=== PATIENT | female | born 2000 | race African-American/Black ===

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

== ENCOUNTER 2019-02-05 17:53 | Emergency (ER) | payer SELFPAY ==
[~2019-02-05] VITALS: Ht 175.3 cm; Wt 61.0 kg
[2019-02-05] MEDS ORDERED: IBUPROFEN 600MG TABLET PO ONE (18:45)
[2019-02-05 19:39] VITALS: BP 108/61
[2019-02-05 19:46] LABS: CLARITY URINE CLOUDY (CLEAR); COLOR URINE YELLOW (YELLOW); KETONES URINE 2+ (NEGATIVE); LEUKOCYTE ESTERASE URINE 2+ (NEGATIVE); NITRITE URINE NEGATIVE (NEGATIVE); OCCULT BLOOD URINE 3+ (NEGATIVE); PROTEIN URINE 1+ (NEGATIVE); SPECIFIC GRAVITY URINE 1.026 (1.005-1.030)
[2019-02-05 19:59] LABS: *AMPHETAMINES SCREEN URINE NEGATIVE (NEGATIVE); *BARBITURATES SCREEN URINE NEGATIVE (NEGATIVE); *BENZODIAZEPINES SCREEN URINE NEGATIVE (NEGATIVE); *COCAINE SCREEN URINE NEGATIVE (NEGATIVE); METHADONE URINE SCREEN NEGATIVE (NEGATIVE); OPIATES URINE SCREEN NEGATIVE (NEGATIVE)
[2019-02-05 20:00] LABS: PHENCYCLIDINE URINE SCREEN NEGATIVE (NEGATIVE)
[2019-02-05 20:24] LABS: BASOPHILS % 0.7 % (0.0-2.0); EOSINOPHILS % 0.1 % (0.0-5.0); HEMATOCRIT. 38.8 % (36.0-48.0); HEMOGLOBIN. 13.2 g/dL (12.0-16.0); LYMPHOCYTES % 10.5 % (20.0-50.0); MEAN CORPUSCULAR HEMOGLOBIN 33.4 pg (28.0-32.0); MEAN CORPUSCULAR VOLUME 98.1 fL (81.0-99.0); MEAN PLATELET VOLUME 7.8 fl (7.4-10.4); MONOCYTES % 6.9 % (2.0-8.0); NEUTROPHILS % 81.8 % (40.0-76.0); PLATELET 227 x1000/uL (130-400); RED BLOOD CELL COUNT 3.95 mill/uL (4.2-5.4); RED CELL DISTRIBUTION WIDTH 13.3 % (11.6-14.6)
[2019-02-05 20:26] LABS: CHLORIDE 109 mEq/L (98-107)
[2019-02-05 20:29] LABS: CANNABINOID URINE SCREEN PRESUMTIVE POSITIVE (NEGATIVE)
[2019-02-05 20:35] LABS: ETHANOL BLOOD < 10 mg/dL
[2019-02-05] MEDS ORDERED: NITROFURANTOIN 100MG M/M CAPSULE PO ONE (20:45)
== END 2019-02-05 21:48 | disposition home or self-care (01) ==
LOC: ER 17:53
DX: T43.641A Poisoning by ecstasy, accidental (unintentional), initial encounter (principal); F16.188 Hallucinogen abuse with other hallucinogen-induced disorder; G50.1 Atypical facial pain; M54.2 Cervicalgia; R07.81 Pleurodynia; R10.12 Left upper quadrant pain; F12.90 Cannabis use, unspecified, uncomplicated; Y04.2XXA Assault by strike against or bumped into by another person, initial encounter; Y93.89 Activity, other specified; Y92.018 Other place in single-family (private) house as the place of occurrence of the external cause
CPT/HCPCS: 36415; 72100; 74022; 80305; 80307; 80320; 80329; 81003; 81025; 99284; G0480

== ENCOUNTER 2025-01-13 11:23 | Emergency (ER) | payer MEDICAID ==
[~2025-01-13] VITALS: Ht 170.2 cm; Wt 78.0 kg
[2025-01-13 11:27] VITALS: O2SAT 97
[2025-01-13 12:10] LABS: BASOPHILS % 1.3 % (0.0-2.0); EOSINOPHILS % 2.2 % (0.0-5.0); HEMATOCRIT. 36.3 % (36.0-48.0); HEMOGLOBIN. 12.0 g/dL (12.0-16.0); LYMPHOCYTES % 29.6 % (20.0-50.0); MEAN PLATELET VOLUME 8.9 fl (7.4-10.4); MONOCYTES % 6.3 % (2.0-8.0); NEUTROPHILS % 60.6 % (40.0-76.0); PLATELET 243 x1000/uL (130-400); RED BLOOD CELL COUNT 4.05 mill/uL (4.2-5.4); RED CELL DISTRIBUTION WIDTH 15.2 % (11.6-14.6)
[2025-01-13 12:26] LABS: CREATININE 0.8 mg/dL (0.6-1.0)
[2025-01-13 12:27] LABS: ETHANOL BLOOD < 10 mg/dL (<10); UREA NITROGEN BLOOD 10 mg/dL (9-23)
[2025-01-13 12:28] LABS: ASPARTATE AMINOTRANSFERASE 17 IU/L (<34)
[2025-01-13 12:29] LABS: BILIRUBIN DIRECT 0.1 mg/dL (<=3.0); BILIRUBIN TOTAL 0.4 mg/dL (0.1-1.0); PHOSPHORUS 2.8 mg/dL (2.5-4.9); PROTEIN TOTAL 7.3 g/dL (6.0-8.3)
[2025-01-13 12:30] LABS: HCG SCREEN NEGATIVE
[2025-01-13 12:33] LABS: T4 FREE 1.05 ng/dL (0.89-1.76)
[2025-01-13 12:36] LABS: CLARITY URINE CLOUDY (CLEAR); COLOR URINE DARK YELLOW (YELLOW); GLUCOSE URINE NEGATIVE (NEGATIVE); KETONES URINE TRACE (NEGATIVE); LEUKOCYTE ESTERASE URINE 1+ (NEGATIVE); NITRITE URINE NEGATIVE (NEGATIVE); OCCULT BLOOD URINE NEGATIVE (NEGATIVE); PH URINE 5.5 (4.5-8.0); PROTEIN URINE NEGATIVE (NEGATIVE); SPECIFIC GRAVITY URINE 1.027 (1.005-1.030); UROBILINOGEN URINE 1.0 E.U./dL (0.2-1.0)
[2025-01-13 12:42] LABS: MONOTEST NEGATIVE (NEGATIVE)
[2025-01-13 12:50] LABS: *AMPHETAMINES SCREEN URINE NEGATIVE (NEGATIVE); *BARBITURATES SCREEN URINE NEGATIVE (NEGATIVE); *BENZODIAZEPINES SCREEN URINE NEGATIVE (NEGATIVE); *COCAINE SCREEN URINE NEGATIVE (NEGATIVE); BACTERIA URINE 3+; CANNABINOID URINE SCREEN NEGATIVE (NEGATIVE); ECSTASY MDMA SCREEN URINE NEGATIVE (NEGATIVE); METHADONE URINE SCREEN NEGATIVE (NEGATIVE); OPIATES URINE SCREEN NEGATIVE (NEGATIVE); PHENCYCLIDINE URINE SCREEN NEGATIVE (NEGATIVE); RBC URINE 0-2 /hpf (0-2); SQUAMOUS EPITHELIAL CELL URINE 3+ /lpf (RARE/1+); YEAST URINE NONE SEEN
[2025-01-13] MEDS: SODIUM CHLORIDE 0.9% 1,000 ML IV ONE (14:00)
[2025-01-13] MEDS: KETOROLAC 30MG/ML VIAL IV ONE (14:46)
[2025-01-13] MEDS: ACETAMINOPHEN 325MG TABLET PO ONE (14:46)
[2025-01-13 15:30] VITALS: BP 115/78; PULSE 101; RESP 18; TEMP 37; O2SAT 97
== END 2025-01-13 15:42 | disposition home or self-care (01) ==
LOC: ER 11:23
DX: G43.909 Migraine, unspecified, not intractable, without status migrainosus (principal); F20.9 Schizophrenia, unspecified; F31.9 Bipolar disorder, unspecified; M79.7 Fibromyalgia; F12.90 Cannabis use, unspecified, uncomplicated; Z79.899 Other long term (current) drug therapy
CPT/HCPCS: 80076; 80305; 80048; 81003; 80320; 82550; 84703; 84439; 83690; 83735; 84100; 84443; 85025; 86308; 36415; 70450; 96361; 96374; 99285; J1885; J7030; G0480